=== PATIENT | female | born 1995 | race Caucasian/White ===

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

== ENCOUNTER 2017-05-03 14:12 | Emergency (ER) | payer SELFPAY ==
[~2017-05-03] VITALS: Ht 165.1 cm; Wt 134.0 kg
[~2017-05-03 14:12] MED LIST changes: -AMOX500T PO; +SERO100T PO; -SERO300T PO
[2017-05-03 14:15] VITALS: BP 141/91; PULSE 119; RESP 15; TEMP 98.4; O2SAT 98
--- NOTE | 2017-05-03 14:20 | PD ---
Physical Exam Time Seen by Provider: 14:17 Narrative 21yo F c/o nasal congestion, bodyaches, cold sweats, subjective fever, sore throat, cough since yesterday. Vomiting yesterday, not since 3am. Chest pain w /coughing. "A little" SOB. Patient seen in triage. VS reviewed. Awaiting bed placement. Data Data Last Documented VS Vital Signs Date Time Temp Pulse Resp B/P (MAP) Pulse Ox O2 Delivery O2 Flow Rate FiO2 05/03/17 14:15 98.4 119 15 141/91 (108) 98 MDM Supervised Visit with TOSHA: Catarina Canales May 03, 2017 14:20
[2017-05-03] MEDS ORDERED: SERO300T PO (14:50)
[2017-05-03] MEDS ORDERED: TRAZ300T2 PO (14:50)
--- NOTE | 2017-05-03 15:03 | PD ---
HPI Chief Complaint: Cold / Flu Symptoms Time Seen by Provider: 14:49 Travel History International Travel<30 days: No Contact w/Intl Traveler<30days: No Traveled to known affect area: No History of Present Illness HPI Patient is a 21 year old female here for evaluation of cold symptoms. Patient developed cough, nasal congestion, sore throat and vomiting yesterday. She had several episodes of emesis overnight. Last one was at 4:00 this morning. She states some of the emesis was posttussive. She states that she has a sensitive stomach. Today she has some chest pain around her sternum when she coughs. She denies shortness of breath outside of coughing. There has been no wheezing. She is no history of asthma. She denies diarrhea. She has no ear pain. She feels like she may have had fever overnight as she had chills and felt hot. She never checked her temperature. Her appetite is decreased. Her urine output is normal. She has no rashes. She has no eye redness or eye drainage. She has no primary care provider. She tried Robitussin and Mucinex overnight without any improvement in her symptoms. She was exposed to somebody with similar symptoms in the last few days. History Past Medical History ADD: Yes ADHD: Yes (ADD,OCD, ) Anxiety: Yes Cancer: No Cardiovascular Problems: No Depression: Yes Diabetes: No Hearing: No Psychiatric: Yes (GENERALIZED ANXIETY DISORDER) Migraines: No Thyroid Disease: No Ulcer: No Tetanus Vaccination: < 5 Years Vision or Eye Problem: No ?: Not LMP: BCP Menopausal: No : 0 Past Surgical History Other Surgery: No Social History Tobacco Use in Home: No Alcohol Use: Yes (occ) Tobacco Use: No Substance Use: No Allergies-Medications (Allergen,Severity, Reaction): Coded Allergies: No Known Allergies (Unverified , 05/03/17) Reported Meds & Prescriptions Reported Meds & Active Scripts Active Reported Trazodone (Trazodone HCl) 300 Mg Tab 300 Mg PO HS Seroquel (Quetiapine Fumarate) 300 Mg Tab 300 Mg PO BID ROS Except as stated in HPI: all other systems reviewed are Neg Physical Exam Narrative GENERAL APPEARANCE: The patient is a well-developed, obese child in no acute distress. She is pink, alert and speaking clearly without shortness of breath. SKIN: Skin is warm and dry without rashes. There is good turgor. HEENT: Throat is clear without erythema, swelling or exudate. Uvula is midline. Mucous membranes are moist. Airway is patent. The pupils are equal, round and reactive to light. Extraocular motions are intact. No drainage or injection. The right tympanic membrane is obscured by impacted cerumen. The left tympanic membrane is without erythema, dullness or loss of landmarks. No perforation. Nasal congestion is present. NECK: Supple and nontender with full range of motion without discomfort. No meningeal signs. LUNGS: Good air entry bilaterally with equal breath sounds without wheezes, rales or rhonchi. CHEST: The chest wall is without retractions or use of accessory muscles. Mild tenderness is present on each side of the mid to upper sternum over the costochondral junction. HEART: Regular rate and rhythm without murmur. ABDOMEN: Soft, nondistended, nontender with positive active bowel sounds. EXTREMITIES: Full range of motion of all extremities is present. No cyanosis. Capillary refill is less than 2 seconds. NEUROLOGIC: The patient is alert, aware and appropriately interactive with parent and with examiner. Cranial nerves 2 to 12 are grossly intact. Good tone. Data Data Last Documented VS Vital Signs Date Time Temp Pulse Resp B/P (MAP) Pulse Ox O2 Delivery O2 Flow Rate FiO2 05/03/17 14:15 98.4 119 15 141/91 (108) 98 VS repeated by me T-98.7, HR-109, pulse ox-99% on room air Orders Orders Influenzae A/B Antigen (05/03/17 14:57) MDM Medical Decision Making Medical Screen Exam Complete: Yes Emergency Medical Condition: Yes Medical Record Reviewed: Yes (Last ED visit in our system was 12/31/16 for an ingrown toenail.) Interpretation(s) Influenza antigens are negative. Differential Diagnosis Viral syndrome, influenza infection, bronchitis, sinusitis, pneumonia, pneumothorax, pulmonary embolism Narrative Course 21-year-old female clinical presentation most consistent with viral upper respiratory infection. She has mild costochondritis as well. She is well- appearing and well-hydrated. Her lungs are clear. I discussed diagnosis, expected course and treatment plan with patient and she feels comfortable. I discussed signs of worsening and reasons to return to ER. Diagnosis Primary Impression: Upper respiratory infection Qualified Codes: J06.9 - Acute upper respiratory infection, unspecified Referrals: Primary Care Physician 1 week Patient Instructions: General Instructions, Upper Respiratory Infection (ED) Departure Forms: Tests/Procedures Additional Instructions: Tylenol/Motrin for fever and pain. No aspirin. Fluids. Regular diet as tolerated. Rest. Return to ER if worsening. Follow up with a primary care doctor in 1 week if not better. Med/Other Pt SpecificInfo: Other (Tylenol/Motrin for fever and pain.) Disposition: 01 DISCHARGE HOME Condition: Stable Primary Care Physician Loli Primary Care Physician Colleen Garcia MD May 03, 2017 15:03
== END 2017-05-03 15:49 | disposition home or self-care (01) ==
LOC: NEPA 14:12
DX: J06.9 Acute upper respiratory infection, unspecified (principal); R11.11 Vomiting without nausea
CPT/HCPCS: 87804; 99283

== ENCOUNTER 2018-02-15 08:43 | Emergency (ER) | payer MEDICAID ==
[~2018-02-15] VITALS: Ht 165.1 cm; Wt 140.0 kg
[~2018-02-15 08:43] MED LIST changes: -LAMO25 PO; -SERO100T PO; +SERO300T PO; +TRAZ300T2 PO
[2018-02-15 08:47] VITALS: BP 122/60; PULSE 103; RESP 16; TEMP 98.3; O2SAT 100
--- NOTE | 2018-02-15 10:00 | PD ---
HPI Chief Complaint: Back/ Neck Pain or Injury Time Seen by Provider: 08:52 Travel History International Travel<30 days: No Contact w/Intl Traveler<30days: No Traveled to known affect area: No History of Present Illness HPI 22-year-old female presents emergency department with 5 day history of left lower back pain which is been progressively worsening over the past 5 days. Patient denies any specific injury. She denies fever, chills, or urinary symptoms. She denies vaginal discharge. Pain is localized to the left lower lumbar region with extension of to the left flank. She has been taking some ibuprofen without much relief. She has not tried heat or ice. Pain is about an 8 out of 10 and worse with movement. She has no known drug allergies. [facility] Past Medical History ADD: Yes ADHD: Yes (ADD,OCD ) Anxiety: Yes Depression: Yes Cancer: No Cardiovascular Problems: No Diabetes: No Diminished Hearing: No Psychiatric: Yes (GENERALIZED ANXIETY DISORDER) Migraines: No Seizures: No Thyroid Disease: No Ulcer: No ?: Not Menopausal: No : 0 Past Surgical History Surgical History: No Previous Surgery Other Surgery: No Social History Alcohol Use: Yes (occ) Tobacco Use: No Substance Use: No (occasional marijuana) Allergies-Medications (Allergen,Severity, Reaction): Coded Allergies: No Known Allergies (Unverified Adverse Reaction, Unknown, 02/15/18) Reported Meds & Prescriptions Reported Meds & Active Scripts Active Reported Trazodone (Trazodone HCl) 300 Mg Tab 300 Mg PO HS Seroquel (Quetiapine Fumarate) 300 Mg Tab 300 Mg PO BID Review of Systems Except as stated in HPI: all other systems reviewed are Neg General / Constitutional: No: Fever, Chills Eyes: No: Visual changes HENT: No: Headaches Cardiovascular: No: Chest Pain or Discomfort Respiratory: No: Shortness of Breath Gastrointestinal: No: Nausea, Vomiting, Diarrhea, Abdominal Pain Genitourinary: Positive: Flank Pain, No: Urgency, Frequency, Dysuria, Discharge , Vaginal Bleeding Musculoskeletal: Positive: Myalgias, Limited ROM, Pain, No: Arthralgias Skin: No Rash Neurologic: No: Weakness Psychiatric: No: Depression Endocrine: No: Polydipsia Hematologic/Lymphatic: No: Easy Bruising Physical Exam Narrative GENERAL: Obese female appears in mild distress. SKIN: Warm and dry. Normal color. Normal turgor. No rash. HEAD: Atraumatic. Normocephalic. EYES: Pupils equal and round. No scleral icterus. No injection or drainage. ENT: No nasal bleeding or discharge. Mucous membranes pink and moist. Pharynx is clear. Airways patent NECK: Trachea midline. Supple and nontender CARDIOVASCULAR: Regular rate and rhythm. RESPIRATORY: No accessory muscle use. Clear to auscultation. Breath sounds equal bilaterally. GASTROINTESTINAL: Abdomen soft, non-tender, nondistended. Hepatic and splenic margins not palpable. MUSCULOSKELETAL: Extremities without clubbing, cyanosis, or edema. No obvious deformities. No bony tenderness appreciated along the lumbar spine. Negative straight leg raise pain bilaterally. Patient has nonspecific left lower lumbar/ flank pain. No weakness appreciated. NEUROLOGICAL: Awake and alert. No obvious cranial nerve deficits. Motor grossly within normal limits. Five out of 5 muscle strength in the arms and legs. Normal speech. PSYCHIATRIC: Appropriate mood and affect; insight and judgment normal. Data Data Last Documented VS Vital Signs Date Time Temp Pulse Resp B/P (MAP) Pulse Ox O2 Delivery O2 Flow Rate FiO2 02/15/18 08:47 98.3 103 16 122/60 (80) 100 Orders Orders Urinalysis - C+S If Indicated (02/15/18 09:00) Ed Urine Pregnancytest Poc (02/15/18 09:00) Urine Culture (02/15/18 09:27) Ceftriaxone Inj (Rocephin Inj) (02/15/18 10:15) Lidocaine 1% Inj (50 Ml) (Xylocaine 1% I (02/15/18 10:15) Ibuprofen (Motrin) (02/15/18 10:15) Labs Laboratory Tests Test 02/15/18 09:27 Urine Color YELLOW Urine Turbidity HAZY Urine pH 6.5 Urine Specific [place] 1.031 Urine Protein 30 mg/dL Urine Glucose (UA) NEG mg/dL Urine Ketones NEG mg/dL Urine Occult Blood MOD Urine Nitrite NEG Urine Bilirubin NEG Urine Urobilinogen LESS THAN 2.0 MG/DL Urine Leukocyte Esterase MOD Urine RBC 5 /hpf Urine WBC 13 /hpf Urine Squamous Epithelial Cells 28 /hpf Urine Bacteria MANY /hpf Urine Mucus MANY /lpf Microscopic Urinalysis Comment CULTURE INDICATED MDM Medical Decision Making Medical Screen Exam Complete: Yes Emergency Medical Condition: Yes Differential Diagnosis Lumbar back pain. Urinary tract infection. Renal colic. Pyelonephritis. Muscle skeletal pain. Narrative Course Urinalysis is checked. As well as urine Urine is negative. Urinalysis is grossly positive, and urine cultures placed. Patient is given Rocephin 1000 mg IM. Patient is continued on Macrodantin twice daily 7 days. Patient also given ibuprofen 800 mg 3 times daily #30. Recommend patient follow-up with local primary care physician. Diagnosis Primary Impression: Urinary tract infection Qualified Codes: N30.00 - Acute cystitis without hematuria Additional Impression: Acute left flank pain Referrals: [facility] Patient Instructions: Dysuria (ED), General Instructions Additional Instructions: Urinalysis is grossly positive, and urine cultures placed. Patient is given Rocephin 1000 mg IM. Patient is continued on Macrodantin twice daily 7 days. Patient also given ibuprofen 800 mg 3 times daily #30. Recommend patient follow-up with local primary care physician. Med/Other Pt SpecificInfo: Prescription(s) given Scripts Ibuprofen (Ibuprofen) 800 Mg Tab 800 MG PO Q8H Y for Pain/Inflammation, #30 TAB 0 Refills Prov: Yannick Krause MD 02/15/18 Nitrofurantoin Macrocrystal (Macrodantin) 100 Mg Cap 100 MG PO BID for 7 Days, #14 CAP 0 Refills Prov: Yannick Krause MD 02/15/18 Disposition: 01 DISCHARGE HOME Condition: Stable Perico Cuello Feb 15, 2018 10:00
[2018-02-15 10:09] LABS: BACTERIA, URINE MANY /hpf; BILIRUBIN, URINE NEG (NEG); BLOOD, URINE MOD (NEG); GLUCOSE,URINE NEG (NEG); KETONE, URINE NEG (NEG); MUCUS URINE MANY /lpf (OCC); NITRITE,URINE NEG (NEG); PH, URINE 6.5 (5.0-8.5); SQUAMOUS EPITHELIAL CELL URINE 28 /hpf (0-5); URINE COLOR YELLOW (YELLW/STRAW); URINE LEUKOCYTE ESTERASE MOD (NEG)
[2018-02-15] MEDS ORDERED: LIDOCAINE HCL 1% 50 ML VIAL INFIL ONE (10:15)
[2018-02-15] MEDS ORDERED: IBUPROFEN 800 MG TAB PO ONE (10:15)
[2018-02-15] MEDS ORDERED: MACR100C3 PO (10:22)
[2018-02-15] MEDS ORDERED: IBUP1TAB7 PO (10:22)
== END 2018-02-15 11:12 | disposition home or self-care (01) ==
LOC: NEPD 08:43
DX: N30.00 Acute cystitis without hematuria (principal); F32.9 Major depressive disorder, single episode, unspecified
CPT/HCPCS: 81001; 84703; 87086; 96372; 99284; J0696